=== PATIENT | female | born 1980 | race Caucasian/White ===

== ENCOUNTER → 2017-04-09 | Outpatient (CLI) | payer OTHER ==
[~2017-04-09] MED LIST: IBUP-1222 PO; NONE PER PT
== END | disposition home or self-care (01) ==
LOC: STAR 12:08
PROVIDERS: ATTEND Student in an Organized Health Care Education/Training Program
DX: Z01.818 Encounter for other preprocedural examination (principal)
CPT/HCPCS: 36415; 85025

== ENCOUNTER 2017-04-22 07:31 | Day surgery (SDC) | payer OTHER ==
[2017-04-09 12:41] VITALS: BP 131/84
[~2017-04-22] VITALS: Ht 167.6 cm; Wt 89.0 kg
[2017-04-22] MEDS ORDERED: LACTATED RINGERS 1,000 ML IV SCH (07:56)
[2017-04-22 07:57] VITALS: BP 131/84
[2017-04-22] MEDS ORDERED: LIDOCAINE 1%, 2ML SQ PRN (08:00)
[2017-04-22] MEDS ORDERED: LIDOCAINE 1%, 2ML ONE (08:10)
[2017-04-22 08:25] LABS: HCG UR OBC PASS
[2017-04-22] MEDS ORDERED: HYDROmorphone 1 MG/ML, 1ML ONE (09:38)
[2017-04-22] MEDS ORDERED: FENTANYL PF 250 MCG/5ML ONE (09:39)
[2017-04-22] MEDS ORDERED: MIDAZOLAM 1 MG/ML, 2ML ONE (09:39)
[2017-04-22] MEDS ORDERED: BUPIVACAINE/PF-EPI 0.25% 1:200K ONE (09:41)
[2017-04-22] MEDS ORDERED: SILVER NITRATE STICK TP ONE (09:41)
[2017-04-22] MEDS ORDERED: MIDAZOLAM 1 MG/ML, 2ML IV PRN (10:30)
[2017-04-22] MEDS ORDERED: MEPERIDINE/PF 25MG/0.5ML IVPush PRN (10:30)
[2017-04-22] MEDS ORDERED: PROMETHAZINE 25 MG/ML, 1ML IV PRN (10:30)
[2017-04-22] MEDS ORDERED: METOCLOPRAMIDE 5 MG/ML, 2ML IV PRN (10:30)
[2017-04-22] MEDS ORDERED: OXYcodone 5 MG/5 ML ORAL.SOL UDC PO PRN (10:30)
[2017-04-22] MEDS ORDERED: HYDROmorphone 1 MG/ML, 1ML IV PRN (10:30)
[2017-04-22] MEDS ORDERED: ONDANSETRON 2MG/ML, 2ML IVPush PRN (10:30)
[2017-04-22] MEDS ORDERED: hydrALAzine 20 MG/ML, 1ML IV PRN (10:30)
[2017-04-22] MEDS ORDERED: LABETALOL 5MG/ML, 20ML IV PRN (10:30)
[2017-04-22] MEDS ORDERED: ACETAMINOPHEN 325 MG TABLET PO PRN (10:30)
[2017-04-22] MEDS ORDERED: FENTANYL PF 100 MCG/2ML IV PRN (10:30)
[2017-04-22] MEDS ORDERED: MEPERIDINE/PF 25MG/0.5ML ONE (11:20)
[2017-04-22] MEDS ORDERED: OXYcodone 5 MG/5 ML ORAL.SOL UDC ONE (11:21)
[2017-04-22] MEDS ORDERED: SUCCINYLCHOLINE 20 MG/ML, 10ML ONE (16:28)
[2017-04-22] MEDS ORDERED: DEXAMETHASONE 4 MG/ML, 1ML ONE (16:28)
[2017-04-22] MEDS ORDERED: CEFAZOLIN 1,000 MG ONE (16:28)
[2017-04-22] MEDS ORDERED: ONDANSETRON 2MG/ML, 2ML ONE (16:28)
[2017-04-22] MEDS ORDERED: KETOROLAC 30 MG/1 ML ONE (16:28)
[2017-04-22] MEDS ORDERED: ROCURONIUM 10 MG/ML ONE (16:28)
[2017-04-22] MEDS ORDERED: PROPOFOL 10 MG/ML, 20ML ONE (16:28)
== END 2017-04-22 14:30 | disposition home or self-care (01) ==
LOC: OUT 07:31
PROVIDERS: ATTEND Student in an Organized Health Care Education/Training Program
DX: Z30.2 Encounter for sterilization (principal); N84.1 Polyp of cervix uteri; N83.202 Unspecified ovarian cyst, left side; Z80.49 Family history of malignant neoplasm of other genital organs; Z82.49 Family history of ischemic heart disease and other diseases of the circulatory system; Z83.49 Family history of other endocrine, nutritional and metabolic diseases; Z83.3 Family history of diabetes mellitus; Z81.8 Family history of other mental and behavioral disorders; E66.9 Obesity, unspecified; Z68.31 Body mass index [BMI] 31.0-31.9, adult; F17.210 Nicotine dependence, cigarettes, uncomplicated
CPT/HCPCS: 36415; 57500; 58661; 58999; 81025; 86850; 86900; 88302; 88305; J0330; J0690; J1100; J1885; J2175; J2250; J2405; J2704; J3010; J3490; J7120; J1170